=== PATIENT | female | born 1945 | race Caucasian/White ===

== ENCOUNTER 2017-05-30 03:26 | Emergency (ER) | payer MEDICARE, OTHER ==
[2017-05-30] MEDS ORDERED: Sodium Chloride 0.9% 5 ML Syringe FLUSH PRN (03:52)
--- NOTE | 2017-05-30 04:00 | EDM.PDOC ---
ED HPI GENERAL MEDICAL PROBLEM - General Chief Complaint: Cardiovascular Problem Stated Complaint: Palpitations Time Seen by Provider: 05/30/17 03:35 Source of Information: Reports: Patient History Limitations: Reports: No Limitations - History of Present Illness INITIAL COMMENTS - FREE TEXT/NARRATIVE: 71 YO WF presents to ER with palpitations which began after waking to use the bathroom at 3am. Pt states when she laid down she began to feel her heart racing. Pt states she tried to calm herself with deep breathing but it didn't help prompting her to come to ER for further evaluation. Pt denies any chest pain, shortness of breath, nausea, or diaphoresis. Pt denies any dizziness or near syncope. Pt denies any previous episodes of palpitations in the past. Onset: Today Onset Date: 05/30/17 Onset Time: 03:00 Duration: Hour(s): (1) Location: Reports: Chest Severity: Mild Improves with: Reports: None Worsens with: Reports: None Associated Symptoms: Denies: Chest Pain, Diaphoresis, Fever/Chills, Nausea/ Vomiting, Shortness of Breath, Syncope - Related Data Allergies Allergy/AdvReac Type Severity Reaction Status Date / Time meperidine HCl [From Demerol] Allergy Hallucinati Verified 05/30/17 04:08 ons morphine Allergy Hallucinati Verified 05/30/17 04:08 ons Sulfa (Sulfonamide Allergy Rash Verified 05/30/17 04:08 Antibiotics) Home Meds: Home Meds Calcium Citrate/Vitamin D3 [Calcium Citrate with D Tablet] 1 each PO DAILY 06/21 [History] Levothyroxine 125 mcg PO DAILY 06/21/13 [History] Multivitamin [Multivitamins] 1 each PO DAILY 06/21/13 [History] Pantoprazole [ProTONIX] 40 mg PO DAILY PRN 06/21/13 [History] Pravastatin Sodium [Pravastatin Sodium] 10 mg PO DAILY 05/30/17 [History] Ubidecarenone [COQ-10] 30 mg PO DAILY 05/30/17 [History] Past Medical History - Past Surgical History Musculoskeletal Surgical History: Reports: Shoulder Surgery ED ROS GENERAL - Review of Systems Review Of Systems: See Below Constitutional: Reports: No Symptoms HEENT: Reports: No Symptoms Respiratory: Reports: No Symptoms Cardiovascular: Reports: Palpitations Endocrine: Reports: No Symptoms GI/Abdominal: Reports: No Symptoms : Reports: No Symptoms Musculoskeletal: Reports: No Symptoms Skin: Reports: No Symptoms Neurological: Reports: No Symptoms Psychiatric: Reports: No Symptoms Hematologic/Lymphatic: Reports: No Symptoms Immunologic: Reports: No Symptoms ED EXAM, GENERAL - Physical Exam Exam: See Below Exam Limited By: No Limitations General Appearance: Alert, WD/WN, No Apparent Distress Nose: Normal Inspection, Normal Mucosa, No Blood Throat/Mouth: Normal Inspection, Normal Lips, Normal Teeth, Normal Gums, Normal Oropharynx, Normal Voice, No Airway Compromise Head: Atraumatic, Normocephalic Neck: Normal Inspection, Supple, Non-Tender, Full Range of Motion Respiratory/Chest: No Respiratory Distress, Lungs Clear, Normal Breath Sounds, No Accessory Muscle Use, Chest Non-Tender Cardiovascular: Normal Peripheral Pulses, Regular Rate, Rhythm, No Edema, No Gallop, No JVD, No Murmur, No Rub, Tachycardia GI/Abdominal: Normal Bowel Sounds, Soft, Non-Tender, No Organomegaly, No Distention, No Abnormal Bruit, No Mass Back Exam: Normal Inspection, Full Range of Motion, NT Extremities: Normal Inspection, Normal Range of Motion, Non-Tender, Normal Capillary Refill, No Pedal Edema Neurological: Alert, Oriented, CN II-XII Intact, Normal Cognition, Normal Gait, Normal Reflexes, No Motor/Sensory Deficits Psychiatric: Normal Affect, Normal Mood Skin Exam: Warm, Dry, Intact, Normal Color, No Rash Lymphatic: No Adenopathy EKG INTERPRETATION EKG Date: 05/30/17 Time: 03:48 Rhythm: NSR Rate (Beats/Min): 153 [place]: RAD-Right [place] Deviation P-Wave: Present QRS: Normal ST-T: Normal QT: Normal Comparison: NA - No Prior EKG Course - Vital Signs Last Recorded V/S: Last Vital Signs Temp 36.4 C 05/30/17 03:30 Pulse 88 05/30/17 05:34 Resp 17 05/30/17 05:34 BP 121/65 05/30/17 05:34 Pulse Ox 95 05/30/17 05:34 - Orders/Labs/Meds Orders: Active Orders 24 hr Category Date Time Status EKG Documentation Completion [RC] ASDIRECTED Care 05/30/17 03:53 Active Peripheral IV Care [RC] . DIRECTED Care 05/30/17 03:53 Active Chest 1V Frontal [CR] Stat Exams 05/30/17 03:52 Ordered Sodium Chloride 0.9% [Syrex Flush] Med 05/30/17 03:52 Active 5 ml FLUSH Q8HR PRN Peripheral IV Insertion Adult [OM.PC] Routine Oth 05/30/17 03:52 Ordered EKG 12 Lead [EK] Routine Ther 05/30/17 03:52 Ordered Medication Orders Sodium Chloride (Syrex Flush) 5 ml FLUSH Q8HR PRN PRN Reason: Keep Vein Open Labs: Laboratory Tests 05/30/17 05/30/17 05/30/17 Range/Units 04:21 04:21 04:21 WBC 3.6 L (5.0-10.0) 10^3/uL RBC 5.43 (3.80-5.50) 10^6/uL Hgb 14.8 (12.0-16.0) g/dL Hct 44.9 (37.0-47.0) % MCV 82.7 (82.0-92.0) fL MCH 27.3 (27.0-31.0) pg MCHC 33.0 (32.0-36.0) g/dL RDW 17.4 H (11.5-14.5) % Plt Count 216 (150-300) 10^3/uL MPV 7.6 (7.4-10.4) fL Neut % (Auto) 46.5 L (50.0-70.0) % Lymph % (Auto) 43.1 H (20.0-40.0) % Darke % (Auto) 7.8 (2.0-8.0) % Eos % (Auto) 2.3 (1.0-3.0) % Baso % (Auto) 0.3 (0.0-1.0) % Neut # (Auto) 1.6 L (2.5-7.0) 10^3/uL Lymph # (Auto) 1.6 (1.0-4.0) 10^3/uL Darke # (Auto) 0.3 (0.1-0.8) 10^3/uL Eos # (Auto) 0.1 (0.1-0.3) 10^3/uL Baso # (Auto) 0.0 (0.0-0.1) 10^3/uL PT 9.9 (8.9-11.4) SEC INR 1.0 (0.9-1.1) APTT 25.7 (20.8-31.2) SEC Sodium 143 (136-145) mmol/L Potassium 3.9 (3.3-5.3) mmol/L Chloride 104 (98-115) mmol/L Carbon Dioxide 28.0 (21.0-32.0) mmol/L BUN 18 (6-25) mg/dL Creatinine 0.67 (0.51-1.17) mg/dL Est Cr Clr Drug Dosing 63.72 mL/min Estimated GFR (MDRD) > 60 mL/min Glucose 111 H (70-110) mg/dL Calcium 8.8 (8.7-10.3) mg/dL Total Bilirubin 0.3 (0.2-1.0) mg/dL AST 21 (15-37) U/L ALT 27 (12-78) U/L Alkaline Phosphatase 86 (46-116) IU/L Creatine Kinase 118 (26-276) U/L CK-MB (CK-2) 1.80 (0.00-4.30) ng/mL Troponin I 0.04 (0.00-0.070) ng/mL Total Protein 7.5 (6.4-8.2) g/dL Albumin 3.56 (3.00-4.80) g/dL Free T4 (0.59-1.17) ng/dL TSH, Ultra Sensitive (0.340-4.820) uIU/mL 05/30/17 Range/Units 04:21 WBC (5.0-10.0) 10^3/uL RBC (3.80-5.50) 10^6/uL Hgb (12.0-16.0) g/dL Hct (37.0-47.0) % MCV (82.0-92.0) fL MCH (27.0-31.0) pg MCHC (32.0-36.0) g/dL RDW (11.5-14.5) % Plt Count (150-300) 10^3/uL MPV (7.4-10.4) fL Neut % (Auto) (50.0-70.0) % Lymph % (Auto) (20.0-40.0) % Darke % (Auto) (2.0-8.0) % Eos % (Auto) (1.0-3.0) % Baso % (Auto) (0.0-1.0) % Neut # (Auto) (2.5-7.0) 10^3/uL Lymph # (Auto) (1.0-4.0) 10^3/uL Darke # (Auto) (0.1-0.8) 10^3/uL Eos # (Auto) (0.1-0.3) 10^3/uL Baso # (Auto) (0.0-0.1) 10^3/uL PT (8.9-11.4) SEC INR (0.9-1.1) APTT (20.8-31.2) SEC Sodium (136-145) mmol/L Potassium (3.3-5.3) mmol/L Chloride (98-115) mmol/L Carbon Dioxide (21.0-32.0) mmol/L BUN (6-25) mg/dL Creatinine (0.51-1.17) mg/dL Est Cr Clr Drug Dosing mL/min Estimated GFR (MDRD) mL/min Glucose (70-110) mg/dL Calcium (8.7-10.3) mg/dL Total Bilirubin (0.2-1.0) mg/dL AST (15-37) U/L ALT (12-78) U/L Alkaline Phosphatase (46-116) IU/L Creatine Kinase (26-276) U/L CK-MB (CK-2) (0.00-4.30) ng/mL Troponin I (0.00-0.070) ng/mL Total Protein (6.4-8.2) g/dL Albumin (3.00-4.80) g/dL Free T4 1.17 (0.59-1.17) ng/dL TSH, Ultra Sensitive 0.890 (0.340-4.820) uIU/mL Meds: Medications Generic Name Dose Route Start Last Admin Trade Name Freq PRN Reason Stop Dose Admin Sodium Chloride 5 ml 05/30/17 03:52 Syrex Flush FLUSH Q8HR PRN Keep Vein Open - Radiology Interpretation Free Text/Narrative:: CXR- NAD Departure - Departure Time of Disposition: 05:38 Disposition: Home, Self-Care 01 Condition: Good Clinical Impression: Palpitations Instructions: Palpitations, [id number] Referrals: Sheryl Diehl MD [Physician] - Forms: ED Department Discharge - My Orders Last 24 Hours: My Active Orders 05/30/17 03:52 Chest 1V Frontal [CR] Stat Sodium Chloride 0.9% [Syrex Flush] 5 ml FLUSH Q8HR PRN Peripheral IV Insertion Adult [OM.PC] Routine EKG 12 Lead [EK] Routine 05/30/17 03:53 EKG Documentation Completion [RC] ASDIRECTED Peripheral IV Care [RC] . DIRECTED - Assessment/Plan Last 24 Hours: My Active Orders 05/30/17 03:52 Chest 1V Frontal [CR] Stat Sodium Chloride 0.9% [Syrex Flush] 5 ml FLUSH Q8HR PRN Peripheral IV Insertion Adult [OM.PC] Routine EKG 12 Lead [EK] Routine 05/30/17 03:53 EKG Documentation Completion [RC] ASDIRECTED Peripheral IV Care [RC] . DIRECTED Assessment:: 1. Palpitations- resolved after valsalva Plan: 1. Discussed case with Dr Diehl- discharge home 2. follow up in clinic for Holter monitor and further evaluation and treatment 3. return to ER for worsening symptoms or chest pain
[2017-05-30 05:28] LABS: CHLORIDE,CL 104 mmol/L (98-115); SODIUM,NA 143 mmol/L (136-145)
== END 2017-05-30 05:50 | disposition home or self-care (01) ==
LOC: KA.ED 03:26
DX: R00.2 Palpitations (principal); Z79.899 Other long term (current) drug therapy; Z88.5 Allergy status to narcotic agent; Z88.2 Allergy status to sulfonamides
CPT/HCPCS: 36415; 71010; 80053; 82550; 82553; 84439; 84443; 84484; 85025; 85610; 85730; 93005; 99285

== ENCOUNTER 2017-12-23 06:23 | Observation (INO) | payer MEDICARE, OTHER ==
[2017-12-23] MEDS ORDERED: Sodium Chloride 0.9% 5 ML Syringe FLUSH PRN (06:54)
--- NOTE | 2017-12-23 07:00 | EDM.PDOC ---
ED HPI GENERAL MEDICAL PROBLEM - General Chief Complaint: Chest Pain Stated Complaint: chest pain Time Seen by Provider: 12/23/17 06:53 Source of Information: Reports: Patient History Limitations: Reports: No Limitations - History of Present Illness INITIAL COMMENTS - FREE TEXT/NARRATIVE: Patient is a 72-year-old female who presents to the emergency department this morning with a complaint of chest pain. Patient states that she was awoken at approximately 5 a.m. out of sleep and felt a squeezing, burning, sensation under her left breast. Pain has been described as constant, without radiation, and not something that she has felt before. Patient denies fever, cough, shortness of breath, headache, nausea, vomiting, or change in medication. Patient states that she was seen at [facility] one month ago and placed on Holter monitor for 48 hours to evaluate cardiac symptoms of palpitations. Results not available at this time. Onset: Today Onset Date: 12/23/17 Onset Time: 05:00 Duration: Constant Location: Reports: Chest Quality: Reports: Burning, Pressure Severity: Mild Improves with: Reports: None Worsens with: Reports: None Context: Reports: Other (While at rest) Associated Symptoms: Reports: Chest Pain. Denies: Cough, Diaphoresis, Fever/ Chills, Headaches, Nausea/Vomiting, Shortness of Breath Middle Chest Pain Score (Numeric/FACES): 5 - Related Data Allergies Allergy/AdvReac Type Severity Reaction Status Date / Time ciprofloxacin Allergy Cannot Verified 12/23/17 06:43 Remember meperidine HCl [From Demerol] Allergy Hallucinati Verified 12/23/17 06:43 ons morphine Allergy Hallucinati Verified 12/23/17 06:43 ons pneumococcal vaccine Allergy Cannot Verified 12/23/17 06:43 Remember Jhdhoxq-Ipp-Hje Reductase Allergy Cannot Verified 12/23/17 06:43 Inhibitor Remember Sulfa (Sulfonamide Allergy Rash Verified 12/23/17 06:43 Antibiotics) tramadol Allergy Cannot Verified 12/23/17 06:43 Remember Home Meds: Home Meds Calcium Citrate/Vitamin D3 [Calcium Citrate with D Tablet] 1 each PO DAILY 06/21 [History] Levothyroxine 125 mcg PO DAILY 06/21/13 [History] Multivitamin [Multivitamins] 1 each PO DAILY 06/21/13 [History] Pantoprazole [ProTONIX] 40 mg PO DAILY PRN 06/21/13 [History] ClonazePAM [KlonoPIN] 0.5 mg PO BEDTIME PRN 12/23/17 [History] Denosumab [Prolia] 1 ml .ROUTE ASDIRECTED 12/23/17 [History] Past Medical History HEENT History: Reports: Impaired Vision Cardiovascular History: Reports: Other (See Below) Other Cardiovascular History: ED visit for Tachycardia Gastrointestinal History: Reports: GERD Genitourinary History: Reports: None ENDOS[employer] TE[employer] History: Reports: Musculoskeletal History: Reports: None Endocrine/Metabolic History: Reports: Hypothyroidism Oncologic (Cancer) History: Reports: Thyroid - Infectious Disease History Infectious Disease History: Reports: Chicken Pox, Measles - Past Surgical History Musculoskeletal Surgical History: Reports: Shoulder Surgery Social & Family History - Family History Family Medical History: Noncontributory - Tobacco Use Smoking Status *Q: Never Smoker Second Hand Smoke Exposure: No - Caffeine Use Caffeine Use: Reports: Tea - Recreational Drug Use Recreational Drug Use: No ED ROS GENERAL - Review of Systems Review Of Systems: ROS reveals no pertinent complaints other than HPI. Constitutional: Reports: No Symptoms HEENT: Reports: No Symptoms Respiratory: Reports: No Symptoms Cardiovascular: Reports: Chest Pain Endocrine: Reports: No Symptoms GI/Abdominal: Reports: No Symptoms : Reports: No Symptoms Musculoskeletal: Reports: No Symptoms Skin: Reports: No Symptoms Neurological: Reports: No Symptoms Psychiatric: Reports: No Symptoms Hematologic/Lymphatic: Reports: No Symptoms Immunologic: Reports: No Symptoms ED EXAM, GENERAL - Physical Exam Exam: See Below Exam Limited By: No Limitations General Appearance: Alert, WD/WN, No Apparent Distress Eye Exam: Bilateral Eye: Normal Inspection Nose: Normal Inspection, Normal Mucosa, No Blood Throat/Mouth: Normal Inspection, Normal Oropharynx, No Airway Compromise Head: Atraumatic, Normocephalic Neck: Normal Inspection, Supple, Non-Tender Respiratory/Chest: No Respiratory Distress, Lungs Clear, Normal Breath Sounds, No Accessory Muscle Use Cardiovascular: Normal Peripheral Pulses, Regular Rate, Rhythm, No Murmur GI/Abdominal: Normal Bowel Sounds, Soft, Non-Tender, No Organomegaly, No Distention, No Abnormal Bruit, No Mass Back Exam: Normal Inspection. No: CVA Tenderness (L), CVA Tenderness (R) Extremities: Normal Inspection, No Pedal Edema Neurological: Alert, Oriented, Normal Cognition Psychiatric: Normal Affect, Normal Mood Skin Exam: Warm, Dry, Intact, Normal Color, No Rash Lymphatic: No Adenopathy EKG INTERPRETATION EKG Date: 12/23/17 Time: 06:35 Rhythm: NSR Rate (Beats/Min): 83 [place]: RAD-Right [place] Deviation QT: Prolonged Comparison: Change From Previous EKG Course - Vital Signs Last Recorded V/S: Last Vital Signs Temp 97.7 F 12/23/17 06:23 Pulse 75 12/23/17 06:54 Resp 16 12/23/17 06:35 BP 148/67 H 12/23/17 06:54 Pulse Ox 99 12/23/17 06:35 - Orders/Labs/Meds Orders: Active Orders 24 hr Category Date Time Status Peripheral IV Care [RC] . DIRECTED Care 12/23/17 06:55 Ordered Chest 1V Frontal [CR] Stat Exams 12/23/17 06:54 Ordered CBC WITH AUTO DIFF [HEME] Stat Lab 12/23/17 06:35 Received COMPREHENSIVE METABOLIC PN,CMP [CHEM] Stat Lab 12/23/17 06:35 Received TROPONIN I [CHEM] Stat Lab 12/23/17 06:35 Received Sodium Chloride 0.9% [Syrex Flush] Med 12/23/17 06:54 Ordered 5 ml FLUSH Q8HR PRN Peripheral IV Insertion Adult [OM.PC] Routine Oth 12/23/17 06:54 Ordered Medication Orders Sodium Chloride (Syrex Flush) 5 ml FLUSH Q8HR PRN PRN Reason: Keep Vein Open Meds: Medications Generic Name Dose Route Start Last Admin Trade Name Freq PRN Reason Stop Dose Admin Sodium Chloride 5 ml 12/23/17 06:54 Syrex Flush FLUSH Q8HR PRN Keep Vein Open - Radiology Interpretation Free Text/Narrative:: Chest x-ray shows airway disease with no acute cardiopulmonary process - Re-Assessments/Exams Free Text/Narrative Re-Assessment/Exam: 12/23/17 07:51 Patient afebrile, nontoxic appearing, vital signs stable. Chest discomfort is now intermittent. Blood pressure 140s over 70s. Heart rate 80s. Discussed case with Dr. Corby mak who knows the patient well. She will be admitted for observation and followed. Departure - Departure Time of Disposition: 07:53 Disposition: Refer to Observation Condition: Fair Clinical Impression: Chest pain Qualifiers: Chest pain type: unspecified Qualified Code(s): R07.9 - Chest pain, unspecified Referrals: Sheryl Diehl MD [Primary Care Provider] - - My Orders Last 24 Hours: My Active Orders 12/23/17 06:35 CBC WITH AUTO DIFF [HEME] Stat COMPREHENSIVE METABOLIC PN,CMP [CHEM] Stat TROPONIN I [CHEM] Stat 12/23/17 06:54 Chest 1V Frontal [CR] Stat Sodium Chloride 0.9% [Syrex Flush] 5 ml FLUSH Q8HR PRN Peripheral IV Insertion Adult [OM.PC] Routine 12/23/17 06:55 Peripheral IV Care [RC] . DIRECTED - Assessment/Plan Last 24 Hours: My Active Orders 12/23/17 06:35 CBC WITH AUTO DIFF [HEME] Stat COMPREHENSIVE METABOLIC PN,CMP [CHEM] Stat TROPONIN I [CHEM] Stat 12/23/17 06:54 Chest 1V Frontal [CR] Stat Sodium Chloride 0.9% [Syrex Flush] 5 ml FLUSH Q8HR PRN Peripheral IV Insertion Adult [OM.PC] Routine 12/23/17 06:55 Peripheral IV Care [RC] . DIRECTED Assessment:: Chest pain Plan: Admitted for observation
[2017-12-23 07:23] LABS: CHLORIDE,CL 104 mmol/L (98-115); SODIUM,NA 140 mmol/L (136-145)
--- NOTE | 2017-12-23 09:47 | PCM.HP ---
H&P History of Present Illness - General Date of Service: 12/23/17 Admit Problem/Dx: Admission Diagnosis/Problem Admission Diagnosis/Problem Chest pain Source of Information: Patient, Old Records, RN History Limitations: Reports: No Limitations - History of Present Illness Initial Comments - Free Text/Narative: This very pleasant 72-year-old female was in her normal state of health was admitted to observation status very early this morning through the ED due to chest pain. Patient was awoken from her sleep with burning, constant, 8/10 non- radiating transversely /anterior type chest pain. She had no NVD, shortness of breath or respiratory complaints. Patient participates in bone-builder exercises with stretches and lifting light weights 3x a week. Yesterday she moved her lawn using up self-propelled mower without shortness of breath or chest pain. She is under the recent care of Dr. Corby mak and was recently evaluated with a 48-hour Holter monitor due to palpitations with 30% tachycardia with 15% ventricular ectopy--recommendation from Dr. Corby mak to be evaluated by cardiology--however patient has no appointment date at this time. Middle Chest Pain Score (Numeric/FACES): 5 - Related Data Allergies/Adverse Reactions: Allergies Allergy/AdvReac Type Severity Reaction Status Date / Time ciprofloxacin Allergy Cannot Verified 12/23/17 06:43 Remember meperidine HCl [From Demerol] Allergy Hallucinati Verified 12/23/17 06:43 ons morphine Allergy Hallucinati Verified 12/23/17 06:43 ons pneumococcal vaccine Allergy Cannot Verified 12/23/17 06:43 Remember Iogiybh-Goo-Zvr Reductase Allergy Cannot Verified 12/23/17 06:43 Inhibitor Remember Sulfa (Sulfonamide Allergy Rash Verified 12/23/17 06:43 Antibiotics) tramadol Allergy Cannot Verified 12/23/17 06:43 Remember Home Medications: Home Meds Calcium Citrate/Vitamin D3 [Calcium Citrate with D Tablet] 1 each PO DAILY 06/21 [History] Levothyroxine 125 mcg PO DAILY 06/21/13 [History] Multivitamin [Multivitamins] 1 each PO DAILY 06/21/13 [History] Pantoprazole [ProTONIX] 40 mg PO DAILY PRN 06/21/13 [History] ClonazePAM [KlonoPIN] 0.5 mg PO BEDTIME PRN 12/23/17 [History] Denosumab [Prolia] 1 ml .ROUTE ASDIRECTED 12/23/17 [History] Metoprolol Tartrate [Lopressor] 25 mg PO BID #60 tablet 12/24/17 [Rx] Nitroglycerin [Nitrostat] 0.4 mg SL ASDIRECTED PRN tab.sl 12/24/17 [Rx] Past Medical History HEENT History: Reports: Impaired Vision Cardiovascular History: Reports: Other (See Below) Other Cardiovascular History: ED visit for Tachycardia Gastrointestinal History: Reports: GERD Genitourinary History: Reports: None [employer] History: Reports: Musculoskeletal History: Reports: None Endocrine/Metabolic History: Reports: Hypothyroidism Oncologic (Cancer) History: Reports: Thyroid - Infectious Disease History Infectious Disease History: Reports: Chicken Pox, Measles - Past Surgical History Musculoskeletal Surgical History: Reports: Shoulder Surgery Social & Family History - Family History Family Medical History: Noncontributory - Tobacco Use Smoking Status *Q: Never Smoker Second Hand Smoke Exposure: No - Caffeine Use Caffeine Use: Reports: Tea - Recreational Drug Use Recreational Drug Use: No H&P Review of Systems - Review of Systems: Review Of Systems: See Below General: Reports: No Symptoms HEENT: Reports: No Symptoms Pulmonary: Reports: No Symptoms Cardiovascular: Reports: Chest Pain, Orthopnea, PND, Edema, Lightheadedness, Syncope, Blood Pressure Problem. Denies: Dyspnea on Exertion, Claudication Gastrointestinal: Denies: Abdominal Pain, Anorexia, Constipation, Diarrhea Genitourinary: Reports: No Symptoms Skin: Reports: No Symptoms Psychiatric: Reports: No Symptoms Neurological: Reports: No Symptoms Hematologic/Lymphatic: Reports: Easy Bruising Immunologic: Reports: No Symptoms Exam - Exam Exam: See Below - Vital Signs Vital Signs: Last Vital Signs Temp 97.6 F 12/23/17 07:54 Pulse 72 12/23/17 07:54 Resp 16 12/23/17 07:54 BP 162/76 H 12/23/17 07:54 Pulse Ox 99 12/23/17 08:59 Weight: 119 lb 4.8 oz - Exam General: Alert, Oriented, 4 HEENT: Conjunctiva Clear, Hearing Intact Neck: Supple, Trachea Midline, 2 Lungs: Clear to Auscultation, Normal Respiratory Effort Cardiovascular: Normal S1, Normal S2, Irregular Rhythm GI/Abdominal Exam: Normal Bowel Sounds, Soft, Non-Tender, No Organomegaly, No Distention, No Abnormal Bruit, No Mass, Pelvis Stable (Female) Exam: Deferred Back Exam: No: CVA Tenderness (L), CVA Tenderness (R) Extremities: No Pedal Edema Peripheral Pulses: 2+: Radial (L), Radial (R) Skin: Warm, Dry, Intact Neurological: Cranial Nerves Intact, Reflexes Equal Bilateral Neuro Extensive - Mental Status: Alert, Oriented x3, Normal Mood/Affect, Normal Cognition Neuro Extensive - Motor, Sensory, Reflexes: CN II-XII Intact, Normal Gait, Normal Reflexes Psychiatric: Alert, Normal Affect, Normal Mood - Patient Data Lab Results Last 24 hrs: Laboratory Results - last 24 hr 12/23/17 12/23/17 12/23/17 Range/Units 06:35 06:35 06:35 WBC 4.7 L (5.0-10.0) 10^3/uL RBC 4.90 (3.80-5.50) 10^6/uL Hgb 13.6 (12.0-16.0) g/dL Hct 40.3 (37.0-47.0) % MCV 82.2 (82.0-92.0) fL MCH 27.7 (27.0-31.0) pg MCHC 33.7 (32.0-36.0) g/dL RDW 14.1 (11.5-14.5) % Plt Count 265 (150-300) 10^3/uL MPV 7.7 (7.4-10.4) fL Add Manual Diff Yes Neutrophils % (Manual) 51 (50-70) % Lymphocytes % (Manual) 39 (20-40) % Monocytes % (Manual) 8 (2-8) % Eosinophils % (Manual) 2 (1-3) % Sodium 140 (136-145) mmol/L Potassium 4.1 (3.3-5.3) mmol/L Chloride 104 (98-115) mmol/L Carbon Dioxide 28.3 (21.0-32.0) mmol/L BUN 16 (6-25) mg/dL Creatinine 0.70 (0.51-1.17) mg/dL Est Cr Clr Drug Dosing 60.59 mL/min Estimated GFR (MDRD) > 60 mL/min Glucose 105 (70-110) mg/dL Calcium 8.8 (8.7-10.3) mg/dL Total Bilirubin 0.4 (0.2-1.0) mg/dL AST 22 (15-37) U/L ALT 26 (12-78) U/L Alkaline Phosphatase 83 (46-116) IU/L Troponin I < 0.04 (0.00-0.070) ng/mL Total Protein 7.6 (6.4-8.2) g/dL Albumin 3.64 (3.00-4.80) g/dL Lipase 127 (73-393) U/L Result Diagrams: 12/23/17 06:35 12/23/17 06:35 Problem List Initiated/Reviewed/Updated: Yes Orders Last 24hrs: Active Orders 24 hr Category Date Time Status Patient Status [ADT] Routine ADT 12/23/17 07:54 Ordered Oxygen Therapy [RC] .PRN Care 12/23/17 07:54 Active Peripheral IV Care [RC] 0900,1700,0100 Care 12/23/17 06:55 Active VTE/DVT Education [RC] PER UNIT ROUTINE Care 12/23/17 07:54 Active Vital Signs [RC] 0300,0700,1100,1500,1900,2300 Care 12/23/17 07:54 Active Heart Healthy Diet [DIET] Diet 12/23/17 Lunch Active Chest 1V Frontal [CR] Stat Exams 12/23/17 06:54 Ordered Sodium Chloride 0.9% [Syrex Flush] Med 12/23/17 06:54 Active 5 ml FLUSH Q8HR PRN Peripheral IV Insertion Adult [OM.PC] Routine Oth 12/23/17 06:54 Ordered Resuscitation Status Routine Resus Stat 12/23/17 07:54 Ordered Medication Orders Sodium Chloride (Syrex Flush) 5 ml FLUSH Q8HR PRN PRN Reason: Keep Vein Open Assessment/Plan Comment:: HISTORY OF PRESENT ILLNESS This very pleasant 72-year-old female was in her normal state of health was admitted to observation status very early this morning through the ED due to chest pain. Patient was awoken from her sleep with burning, constant, 8/10 non- radiating transversely /anterior type chest pain. She had no NVD, shortness of breath or respiratory complaints. Patient participates in bone-builder exercises with stretches and lifting light weights 3x a week. Yesterday she mowed her lawn using up self-propelled mower without shortness of breath or chest pain. She is under the recent care of Dr. Corby mak and was recently evaluated with a 48-hour Holter monitor due to palpitations with 30% tachycardia with 15% ventricular ectopy--recommendation from Dr. Corby mak to be evaluated by cardiology--however patient has no appointment date at this time. Pertinent ED findings Initial Troponin normal Electrolytes normal H/H normal EKG, NSR, QTc 507, axis deviation, EKG readout pulmonary disease pattern however I do not see significant dampening Chest x-ray, hyperinflated but clear lungs. Impression/plan Rule out myocardial infarction, continue serial troponin. EKG upon chest pain, telemetry status, hold off from ASA therapy. Frequent ventricular ectopy, asymptomatic, SBP 160, continue to monitor may be candidate for suppression therapy, with EKG demonstrating right axis deviation patient may have underlying undiagnosed hypertension, cardiology consultation, in the meantime will start the patient on low dose beta 1a Secondary problems, stable Postsurgical hypothyroidism, Primary thyroid papillary adenocarcinoma, recent TSH is 0.44 HLD with recent and ongoing statin dermatitis, ongoing skin sequela, off statin therapy Anteriorlisthesis, L5, minimal without impingement Esophageal reflux, PPI Osteoporosis, supplementation Prolia Overall plan and management today, telemetry full CODE STATUS, start low dose beta 1a, ambulate on the floor if second troponin normal, monitor troponin, anticipate discharge in a.m. with cardiology follow-up.
[2017-12-23] MEDS ORDERED: Pantoprazole 40 MG Tab.CR PO PRN (10:55)
[2017-12-23] MEDS ORDERED: Atropine 0.1 MG/ML 10 ML Syringe IVPUSH PRN (11:01)
[2017-12-23] MEDS ORDERED: EPINEPHrine 1:10,000 1 MG/10 ML Syringe IVPUSH PRN (11:01)
[2017-12-23] MEDS ORDERED: Lidocaine 2% 100 MG/5 ML Syringe IVPUSH PRN (11:01)
[2017-12-23] MEDS ORDERED: Nitroglycerin 0.4 MG Tab.SL SL PRN (11:01)
[2017-12-23] MEDS: Metoprolol Tartrate 25 MG Tab PO SCH ×2 (11:52→20:55)
[2017-12-23] MEDS: Levothyroxine 25 MCG Tab PO SCH (11:54)
[2017-12-23] MEDS: Levothyroxine 100 MCG Tab PO SCH (11:54)
[2017-12-23] MEDS ORDERED: Calcium Citrate/Vitamin D3 315 MG-250 Unit Tab PO SCH (18:00)
[2017-12-23] MEDS ORDERED: ClonazePAM 0.5 MG Tab PO PRN (21:00)
[2017-12-24] MEDS: Levothyroxine 25 MCG Tab PO SCH (07:10)
[2017-12-24] MEDS: Levothyroxine 100 MCG Tab PO SCH (07:10)
[2017-12-24] MEDS: Metoprolol Tartrate 25 MG Tab PO SCH ×2 (08:54→12:30)
[2017-12-24 12:31] VITALS: BP 0/0
--- NOTE | 2017-12-25 11:49 | DISCH ---
DISCHARGE DIAGNOSIS: Includes chest pain and palpitations. Ventricular ectopy which was asymptomatic. SECONDARY DIAGNOSIS: Her secondary diagnosis includes postsurgical hypothyroidism related to a thyroid papillary adenocarcinoma, esophageal reflux, osteoporosis, and anterolisthesis. BRIEF HISTORY: Inclusive of an observation admission through the emergency department due to chest pain. The patient had been awakened from her sleep with a burning constant discomfort at the anterior chest wall, which she describes as an 8/10 on the pain scale. There was no radiation of pain. At the time of the incident, she had no neck vein distention, respiratory complaints, or shortness of breath. She had a recent 48-hour Holter monitor due to palpitations. This monitor indicated a 30% tachycardia with 15% ventricular ectopy. HOSPITAL COURSE: The patient was admitted to observation. She was started on metoprolol 25 mg on a b.i.d. basis. She had no further complications. Her chest discomfort resolved. PHYSICAL EXAM ON DISCHARGE: HEENT: Negative. RESPIRATORY: Lung sounds are clear to auscultation. CARDIOVASCULAR: Heart rate and rhythm is regular, S1, S2 without ectopy at present. ABDOMEN: Soft, nontender, bowel sounds are present. EXTREMITIES: Noted no lower extremity edema. DISPOSITION AND DISCHARGE INSTRUCTIONS: The patient will be discharged to her home setting. Discharge instructions per discharge packet were provided to the patient. She will be following up for her cardiology consult and she will notify her provider of any other questions or concerns. DISCHARGE MEDICATIONS: Calcium with vitamin D; clonazepam 0.5 at bedtime p.r.n.; Prolia q.6 months; levothyroxine 125 mcg daily; metoprolol tartrate 25 mg b.i.d.; multivitamin daily; nitroglycerin p.r.n.; and Protonix 40 mg on a daily basis. LABS AND DIAGNOSTICS: During hospitalization include a chemistry panel which was normal. Her troponins x3 were less than 0.04. CBC normal, say for WBC of 4.7. CONSULT: The patient does have a cardiology consult scheduled in [place] on the of this month. /[id number]/MODL
== END 2017-12-24 11:13 | disposition home or self-care (01) ==
LOC: SUPCPDRO 06:23 → KA.ED 06:23 → KA.MS 08:01
PROVIDERS: ADMIT Physician Assistant Surgical; ATTEND Family Medicine
DX: R07.89 Other chest pain (principal); R00.2 Palpitations; E89.0 Postprocedural hypothyroidism; K21.9 Gastro-esophageal reflux disease without esophagitis; Z88.1 Allergy status to other antibiotic agents; Z88.5 Allergy status to narcotic agent; Z88.8 Allergy status to other drugs, medicaments and biological substances; Z88.2 Allergy status to sulfonamides; Z88.7 Allergy status to serum and vaccine; Z79.899 Other long term (current) drug therapy
CPT/HCPCS: 36415; 71045; 80053; 83690; 84484; 85025; A9270-GY

== ENCOUNTER 2020-03-07 13:50 | Emergency (ER) | payer MEDICARE, OTHER ==
[2020-03-07] MEDS ORDERED: Aspirin 81 MG Tab.Chew PO ONE (13:59)
[2020-03-07] MEDS: Nitroglycerin 0.4 MG Tab.SL SL PRN ×3 (14:04→14:31)
--- NOTE | 2020-03-07 14:08 | EDM.PDOC ---
ED HPI GENERAL MEDICAL PROBLEM - General Chief Complaint: Chest Pain Stated Complaint: chest pain and pain between shoulder blades Time Seen by Provider: 03/07/20 13:58 Source of Information: Reports: Patient, Family History Limitations: Reports: No Limitations - History of Present Illness INITIAL COMMENTS - FREE TEXT/NARRATIVE: Marge, 74-year-old female, states she developed pain between the shoulder blades last evening. She had been making fresh tomato juice from garden produce she had picked last afternoon. States pain remain between the shoulder blades with occasional pressure sensation in the anterior chest. Does not radiate anywhere else. Has done no strenuous lifting pulling or pushing. Pain does not change with positioning nor motion of the upper extremities. States she did not sleep well secondary of discomfort, rating her pain a 5 on a scale up to 10 at the time of her arrival. Has had no fever chills or other concerns with normal bowel and bladder. Denies any claudication, leg swelling or shortness of breath/exertional shortness of breath. States no strenuous activity or any activity beyond her normal lifestyle. Her daughter relates that she left the homecoming festivities last evening, unannounced to return home. Onset Date: 03/06/20 Onset Time: 19:00 Duration: Hour(s): Location: Reports: Chest, Back Quality: Reports: Pressure Severity: Moderate Improves with: Reports: None Worsens with: Reports: None Associated Symptoms: Reports: No Other Symptoms Chest Pain Score (Numeric/FACES): 5 - Related Data Allergies Allergy/AdvReac Type Severity Reaction Status Date / Time ciprofloxacin Allergy Cannot Verified 03/07/20 14:57 Remember meperidine HCl [From Demerol] Allergy Hallucinati Verified 03/07/20 14:57 ons morphine Allergy Hallucinati Verified 03/07/20 14:57 ons pneumococcal vaccine Allergy Cannot Verified 03/07/20 14:57 Remember Xhivioc-Atu-Sft Reductase Allergy Cannot Verified 03/07/20 14:57 Inhibitor Remember Sulfa (Sulfonamide Allergy Rash Verified 03/07/20 14:57 Antibiotics) tramadol Allergy Cannot Verified 03/07/20 14:57 Remember Home Meds: Home Meds Calcium Citrate/Vitamin D3 [Calcium Cit 200 mg-D3 125 Unit] 1 each PO DAILY 06/21/13 [History] Levothyroxine 125 mcg PO DAILY 06/21/13 [History] Multivitamin [Multivitamins] 1 each PO DAILY 06/21/13 [History] Denosumab [Prolia] 60 mg IM ASDIRECTED 12/23/17 [History] carvediloL [Carvedilol] 12.5 mg PO BID 01/18/18 [History] Past Medical History HEENT History: Reports: Impaired Vision Cardiovascular History: Reports: Other (See Below) Other Cardiovascular History: ED visit for Tachycardia Gastrointestinal History: Reports: GERD Genitourinary History: Reports: None [employer] History: Reports: Musculoskeletal History: Reports: None Endocrine/Metabolic History: Reports: Hypothyroidism Oncologic (Cancer) History: Reports: Thyroid - Infectious Disease History Infectious Disease History: Reports: Chicken Pox, Measles - Past Surgical History Musculoskeletal Surgical History: Reports: Shoulder Surgery Social & Family History - Family History Family Medical History: Noncontributory - Tobacco Use Smoking Status *Q: Never Smoker - Caffeine Use Caffeine Use: Reports: Tea ED ROS GENERAL - Review of Systems Review Of Systems: Comprehensive ROS is negative, except as noted in HPI. ED EXAM, GENERAL - Physical Exam Exam: See Below General Appearance: Alert, WD/WN, No Apparent Distress Ears: Normal External Exam, Normal Canal, Hearing Grossly Normal Nose: Normal Inspection, Normal Mucosa, No Blood Throat/Mouth: Normal Inspection, Normal Lips, Normal Teeth, Normal Oropharynx Head: Atraumatic, Normocephalic Neck: Normal Inspection, Supple, Non-Tender, Full Range of Motion. No: Carotid Bruit Respiratory/Chest: No Respiratory Distress, Lungs Clear, Normal Breath Sounds, No Accessory Muscle Use, Chest Non-Tender Cardiovascular: Normal Peripheral Pulses, Regular Rate, Rhythm, No Edema, No Gallop, No Murmur, No Rub GI/Abdominal: Normal Bowel Sounds, Soft, Non-Tender, No Organomegaly (Female) Exam: Deferred Rectal (Female) Exam: Deferred Back Exam: Normal Inspection, Full Range of Motion, Other (Scattered chronic skin lesions none of which are infectious in nature.) Extremities: Normal Inspection, Normal Range of Motion, Non-Tender, No Pedal Edema Neurological: Alert, Oriented, CN II-XII Intact, Normal Cognition, Normal Gait, Normal Reflexes, No Motor/Sensory Deficits Psychiatric: Normal Affect, Normal Mood Skin Exam: Warm, Dry, Intact, Normal Color, No Rash, Other (Scattered chronic skin lesions none of which appear significant at this time.) Lymphatic: No Adenopathy EKG INTERPRETATION EKG Date: 03/07/20 Time: 14:04 Rhythm: NSR P-Wave: Present ST-T: Normal Comparison: Change From Previous EKG Course - Vital Signs Last Recorded V/S: Last Vital Signs Temp 37.1 C 03/07/20 13:50 Pulse 88 03/07/20 17:01 Resp 16 03/07/20 17:01 BP 147/75 H 03/07/20 17:01 Pulse Ox 98 03/07/20 17:01 - Orders/Labs/Meds Orders: Active Orders 24 hr Category Date Time Status EKG Documentation Completion [RC] ASDIRECTED Care 03/07/20 13:59 Active B-TYPE NATRIURETIC PEPTIDE,BNP [CHEM] Stat Lab 03/07/20 14:15 Results CK W CKMB [CHEM] Stat Lab 03/07/20 14:15 Results TROPONIN I [CHEM] Stat Lab 03/07/20 14:15 Results Nitroglycerin [Nitrostat] Med 03/07/20 13:59 Active 0.4 mg SL Q5M PRN EKG 12 Lead [EK] Urgent Ther 03/07/20 13:59 Ordered Medication Orders Nitroglycerin (Nitrostat) 0.4 mg SL Q5M PRN PRN Reason: Chest Pain Stop: 03/08/20 13:59 Last Admin: 03/07/20 14:31 Dose: 0.4 mg Documented by: Admin: 03/07/20 14:23 Dose: 0.4 mg Documented by: Admin: 03/07/20 14:04 Dose: 0.4 mg Documented by: HANANE Labs: Laboratory Tests 03/07/20 03/07/20 03/07/20 Range/Units 14:15 14:15 14:15 WBC 4.44 L (5.00-10.00) 10^3/uL RBC 4.58 (3.80-5.50) 10^6/uL Hgb 13.2 (12.0-16.0) g/dL Hct 40.4 (37.0-47.0) % MCV 88.2 D (82.0-92.0) fL MCH 28.8 (27.0-31.0) pg MCHC 32.7 (32.0-36.0) g/dL RDW 13.8 (11.5-14.5) % Plt Count 239 (150-400) 10^3/uL MPV 9.1 (7.4-10.4) fL Immature Gran % (Auto) 0.2 (0.0-5.0) % Neut % (Auto) 66.9 (50.0-70.0) % Lymph % (Auto) 23.0 (20.0-40.0) % [place] % (Auto) 9.0 H (2.0-8.0) % Eos % (Auto) 0.7 L (1.0-3.0) % Baso % (Auto) 0.2 (0.0-1.0) % Neut # (Auto) 2.97 (2.50-7.00) 10^3/uL Lymph # (Auto) 1.02 (1.00-4.00) 10^3/uL [place] # (Auto) 0.40 (0.10-0.80) 10^3/uL Eos # (Auto) 0.03 L (0.10-0.30) 10^3/uL Baso # (Auto) 0.01 (0.00-0.10) 10^3/uL Immature Gran # (Auto) 0.01 (0.00-0.50) 10^3/uL APTT 25.3 (22.8-31.4) SEC POC Sodium (138-146) mmol/L Sodium Cancelled POC Potassium (3.5-4.5) mmol/L Potassium Cancelled POC Chloride (98-109) mmol/L Chloride Cancelled Carbon Dioxide Cancelled POC Total CO2 (24-29) mmol/L Anion Gap Cancelled POC Anion Gap (7-16) mmol/L POC BUN (8-26) mg/dL BUN Cancelled Creatinine Cancelled POC Creatinine (0.51-1.19) mg/dL Est Cr Clr Drug Dosing Cancelled Estimated GFR (MDRD) Cancelled Glucose Cancelled POC Glucose (74-106) mg/dl Calcium Cancelled POC Ioniz Calcium Karon (1.12-1.32) mmol/L Total Bilirubin Cancelled AST Cancelled ALT Cancelled Alkaline Phosphatase Cancelled Troponin I 0.00 (0.00-0.070) ng/mL Total Protein Cancelled Albumin Cancelled 03/07/20 03/07/20 Range/Units 17:30 17:46 WBC (5.00-10.00) 10^3/uL RBC (3.80-5.50) 10^6/uL Hgb (12.0-16.0) g/dL Hct (37.0-47.0) % MCV (82.0-92.0) fL MCH (27.0-31.0) pg MCHC (32.0-36.0) g/dL RDW (11.5-14.5) % Plt Count (150-400) 10^3/uL MPV (7.4-10.4) fL Immature Gran % (Auto) (0.0-5.0) % Neut % (Auto) (50.0-70.0) % Lymph % (Auto) (20.0-40.0) % [place] % (Auto) (2.0-8.0) % Eos % (Auto) (1.0-3.0) % Baso % (Auto) (0.0-1.0) % Neut # (Auto) (2.50-7.00) 10^3/uL Lymph # (Auto) (1.00-4.00) 10^3/uL [place] # (Auto) (0.10-0.80) 10^3/uL Eos # (Auto) (0.10-0.30) 10^3/uL Baso # (Auto) (0.00-0.10) 10^3/uL Immature Gran # (Auto) (0.00-0.50) 10^3/uL APTT (22.8-31.4) SEC POC Sodium 137 L (138-146) mmol/L Sodium POC Potassium 4.2 (3.5-4.5) mmol/L Potassium POC Chloride 103 (98-109) mmol/L Chloride Carbon Dioxide POC Total CO2 24.3 (24-29) mmol/L Anion Gap POC Anion Gap 14 (7-16) mmol/L POC BUN 17 (8-26) mg/dL BUN Creatinine POC Creatinine 0.83 (0.51-1.19) mg/dL Est Cr Clr Drug Dosing Estimated GFR (MDRD) Glucose POC Glucose 88 (74-106) mg/dl Calcium POC Ioniz Calcium Karon 1.16 (1.12-1.32) mmol/L Total Bilirubin AST ALT Alkaline Phosphatase Troponin I 0.00 (0.00-0.070) ng/mL Total Protein Albumin Meds: Medications Generic Name Dose Route Start Last Admin Trade Name Aziza PRN Reason Stop Dose Admin Nitroglycerin 0.4 mg 03/07/20 13:59 03/07/20 14:31 Nitrostat SL 03/08/20 13:59 0.4 mg Q5M PRN Administration Chest Pain Discontinued Medications Generic Name Dose Route Start Last Admin Trade Name Aziza PRN Reason Stop Dose Admin Aspirin 324 mg 03/07/20 13:59 03/07/20 14:05 Aspirin PO 03/07/20 14:00 324 mg ONETIME ONE Administration Ondansetron HCl 8 mg 03/07/20 14:30 03/07/20 14:37 Zofran IVPUSH 03/07/20 14:31 8 mg ONETIME ONE Administration - Radiology Interpretation Free Text/Narrative:: Chest x-ray shows no obvious acute cardiopulmonary abnormalities. - Re-Assessments/Exams Free Text/Narrative Re-Assessment/Exam: 03/07/20 14:43 Pain at the time of arrival was rated to be a 5. After the administration of baby aspirin 3 and 24 mg chewed and swallowed and a 0.4 nitroglycerin sublingual pain reduced to a 4. After the second administration of nitroglycerin pain was a 3. After the third administration of nitroglycerin pain is down to a 2 with minimal if any pain between the shoulder blades and some chest. Did experience mild nausea which was significantly improved if not nearly resolved with the administration of Zofran. Free Text/Narrative Re-Assessment/Exam: 03/07/20 17:47 With the laboratory delay monitoring 4 hours since arrival will repeat troponin remains negative we will add assurance to noncardiac. 03/07/20 18:17 With a negative troponin and no recurrence of discomfort after initial treatment we discussed options with D and her . Will discharge home with [facility] for follow-up. Departure - Departure Time of Disposition: 18:16 Disposition: Home, Self-Care 01 Condition: Good Clinical Impression: Hypertension, Midline thoracic back pain, Atypical chest pain - Discharge Information *PRESCRIPTION DRUG MONITORING PROGRAM REVIEWED*: Not Applicable *COPY OF PRESCRIPTION DRUG MONITORING REPORT IN PATIENT LEEROY: Not Applicable Instructions: Chest Wall Pain, Nonspecific Chest Pain, Adult, [id number] Referrals: Sheryl Diehl MD [Primary Care Provider] - Forms: ED Department Discharge Additional Instructions: Go home and rest tonight avoiding any exertional activity. Continue all of your medications as previously directed. Maintain a healthy diet and good fluid intake. Call your clinic to discuss with them what tests they feel is pertinent, such as a stress test or echocardiogram as the 4-hour troponin test returned negative. As we discussed the treatment initiated was focused on cardiac, but with resolution of your pain and not returning without any further treatment, and the negative troponin repeated at the 4-hour solitario, decreases the likelihood of cardiac involvement. Return to the emergency department or contact your clinic if symptoms should return or any other questions arise. Sepsis Event Note (ED) - Focused Exam Vital Signs: Vital Signs Temp Pulse Resp BP BP Pulse Ox 03/07/20 17:01 88 16 147/75 H 98 03/07/20 16:30 86 16 132/63 98 03/07/20 16:00 61 16 118/59 L 97 03/07/20 15:30 61 20 109/61 96 03/07/20 15:15 67 16 126/65 95 03/07/20 15:00 62 18 107/56 L 96 03/07/20 14:45 71 12 97/62 96 03/07/20 14:31 114/66 03/07/20 14:30 80 16 114/66 96 03/07/20 14:23 134/74 03/07/20 14:15 71 18 138/74 94 L 03/07/20 14:04 165/79 H 03/07/20 14:00 69 16 165/79 H 98 03/07/20 13:50 37.1 C 74 17 170/84 H 98 - Problem List & Annotations (1) Midline thoracic back pain SNOMED Code(s): 838312430 Code(s): M54.6 - PAIN IN THORACIC SPINE Status: Acute Priority: High Current Visit: Yes Qualifiers: Chronicity: acute Qualified Code(s): M54.6 - Pain in thoracic spine (2) Chest pain SNOMED Code(s): 93824118 Code(s): R07.9 - CHEST PAIN, UNSPECIFIED Status: Acute Priority: High Current Visit: Yes Qualifiers: Chest pain type: unspecified Qualified Code(s): R07.9 - Chest pain, unspecified (3) Atypical chest pain SNOMED Code(s): 469613593 Code(s): R07.89 - OTHER CHEST PAIN Status: Acute Current Visit: Yes - Problem List Review Problem List Initiated/Reviewed/Updated: Yes - My Orders Last 24 Hours: My Active Orders 03/07/20 13:59 EKG Documentation Completion [RC] ASDIRECTED Nitroglycerin [Nitrostat] 0.4 mg SL Q5M PRN EKG 12 Lead [EK] Urgent 03/07/20 14:15 B-TYPE NATRIURETIC PEPTIDE,BNP [CHEM] Stat CK W CKMB [CHEM] Stat TROPONIN I [CHEM] Stat - Assessment/Plan Last 24 Hours: My Active Orders 03/07/20 13:59 EKG Documentation Completion [RC] ASDIRECTED Nitroglycerin [Nitrostat] 0.4 mg SL Q5M PRN EKG 12 Lead [EK] Urgent 03/07/20 14:15 B-TYPE NATRIURETIC PEPTIDE,BNP [CHEM] Stat CK W CKMB [CHEM] Stat TROPONIN I [CHEM] Stat Plan: Go home and rest tonight avoiding any exertional activity. Continue all of your medications as previously directed. Maintain a healthy diet and good fluid intake. Call your clinic to discuss with them what tests they feel is pertinent, such as a stress test or echocardiogram as the 4-hour troponin test returned negative. As we discussed the treatment initiated was focused on cardiac, but with resolution of your pain and not returning without any further treatment, and the negative troponin repeated at the 4-hour solitario, decreases the likelihood of cardiac involvement. Return to the emergency department or contact your clinic if symptoms should return or any other questions arise.
--- NOTE | 2020-03-07 14:25 | CR ---
[id number] RAD/RAD Chest PA or AP 1V EXAM: RAD Chest PA or AP 1V INDICATION: CHEST PAIN. COMPARISON: January 18, 2018. DISCUSSION: Cardiomediastinal silhouette is stable in size and contour. No infiltrate, effusion, pneumothorax, or edema. Pulmonary hyperinflation. IMPRESSION: No acute cardiopulmonary abnormality. Morteza Gerber DO 03/07/20 1424 Thank you for allowing us to participate in the care of your patient.
[2020-03-07] MEDS ORDERED: Ondansetron 4 MG/2 ML SDV IVPUSH ONE (14:30)
[2020-03-07 17:03] VITALS: BP 147/75; PULSE 88
[2020-03-07 17:42] LABS: POTASSIUM,POC 4.2 mmol/L (3.5-4.5)
== END 2020-03-07 18:25 | disposition home or self-care (01) ==
LOC: KA.ED 13:50
DX: I10 Essential (primary) hypertension (principal); M54.6 Pain in thoracic spine; R07.89 Other chest pain; E03.9 Hypothyroidism, unspecified; Z88.1 Allergy status to other antibiotic agents; Z88.5 Allergy status to narcotic agent; Z88.2 Allergy status to sulfonamides; Z88.7 Allergy status to serum and vaccine; Z88.8 Allergy status to other drugs, medicaments and biological substances; Z79.899 Other long term (current) drug therapy
CPT/HCPCS: 36415; 71045; 80047; 82550; 82553; 83880; 84484; 85025; 85730; 93005; 96374; 99284; 99285-25; A9270-GY; J2405

== ENCOUNTER 2021-09-10 00:06 | Emergency (ER) | payer MEDICARE, OTHER ==
[2021-09-10] MEDS ORDERED: Aspirin 81 MG Tab.Chew PO ONE (00:10)
[2021-09-10] MEDS ORDERED: Aspirin 81 MG Tab.Chew ONE (00:14)
[2021-09-10] MEDS ORDERED: Nitroglycerin 0.4 MG Tab.SL ONE (00:14)
[2021-09-10] MEDS: Nitroglycerin 0.4 MG Tab.SL SL PRN ×2 (00:26→00:34)
[2021-09-10] MEDS ORDERED: Sodium Chloride 0.9% 1,000 ML IV ONE (00:29)
[2021-09-10] MEDS ORDERED: Sodium Chloride 0.9% 1,000 ML ONE (00:30)
[2021-09-10 00:51] LABS: ANION GAP 13.6 mmol/L (5-15); CHLORIDE,CL 100 mmol/L (98-107); SODIUM,NA 139 mmol/L (136-145)
[2021-09-10] MEDS ORDERED: LORazepam 0.5 MG Tab PO ONE (01:09)
== END 2021-09-10 07:26 | disposition home or self-care (01) ==
LOC: KA.ED 00:06
DX: R07.89 Other chest pain (principal); R00.2 Palpitations; E03.9 Hypothyroidism, unspecified; K21.9 Gastro-esophageal reflux disease without esophagitis; Z88.1 Allergy status to other antibiotic agents; Z88.5 Allergy status to narcotic agent; Z88.7 Allergy status to serum and vaccine; Z79.899 Other long term (current) drug therapy
CPT/HCPCS: 36415; 80053; 84484; 85025; 93005; 99284; 99285-25; A9270-GY; J7030